=== PATIENT | female | born 1935 | race African-American/Black ===

== ENCOUNTER 2022-08-02 14:06 | Observation (INO) | payer OTHER ==
[2022-08-02] MEDS ORDERED: MECLIZINE HCL 25 MG TABLET (FP) PO ONE (15:27)
[2022-08-02] MEDS ORDERED: SODIUM CHLORIDE 0.9% 500 ML INFUS.BAG IV ONE (15:27)
[2022-08-02] MEDS ORDERED: MECLIZINE HCL 25 MG TABLET (FP) ONE (15:32)
[2022-08-02 17:15] LABS: EOS % 2.3 % (0-4.5); HEMATOCRIT 24.2 % (32.4-45.2); HEMOGLOBIN 7.6 GM/dL (10.7-15.3); LYMPH % 63.2 % (8-40); MCH 28.9 pg (25.7-33.7); MCHC 31.2 g/dl (32.0-36.0); MEAN CELL VOLUME 92.5 fl (80-96); MEAN PLT VOLUME 8.2 fl (7.5-11.1); NEUT % 25.5 % (42.8-82.8); PLATELET COUNT 229 10^3/uL (134-434); RBC 2.62 M/mm3 (3.60-5.2); RDW 19.2 % (11.6-15.6); WHITE BLOOD COUNT 4.2 K/mm3 (4.0-10.0)
[2022-08-02 17:17] LABS: PROTHROMBIN TIME (PATIENT) 11.6 SEC (9.7-13.0)
[2022-08-02 17:19] LABS: ACTIVATED PTT 30.8 SECONDS (25.2-36.5)
[2022-08-02 17:31] LABS: ALBUMIN 3.4 g/dl (3.4-5.0); BLOOD UREA NITROGEN 15.3 mg/dL (7-18)
[2022-08-02 17:34] LABS: CREATININE 1.2 mg/dL (0.55-1.3)
[2022-08-02 17:35] LABS: BILIRUBIN,TOTAL 0.2 mg/dL (0.2-1); TOT PROT 6.6 g/dl (6.4-8.2)
[2022-08-02 17:57] LABS: ANISOCYTOSIS 2+; MACROCYTOSIS 0; OVALOCYTE 1+; TARGET CELLS 1+; TEAR DROP CELLS 1+
[2022-08-02 20:35] LABS: CHOLESTEROL 145 mg/dL (50-200); TRIGLYCERIDES 77 mg/dL (0-150)
[2022-08-02 20:36] LABS: LDL CHOLESTEROL (ONLY SJRH) 72 mg/dL (5-100)
[2022-08-02 20:38] LABS: HDL CHOLESTEROL 67 mg/dL (40-60)
[2022-08-02] MEDS ORDERED: SODIUM CHLORIDE 1,000 ML IV SCH (21:15)
[2022-08-03 06:13] VITALS: BMI 26.3
[2022-08-03 08:45] LABS: BASO % 0.7 % (0-2.0); EOS % 2.8 % (0-4.5); HEMATOCRIT 21.9 % (32.4-45.2); LYMPH % 19.1 % (8-40); MCHC 31.1 g/dl (32.0-36.0); MEAN CELL VOLUME 90.2 fl (80-96); MEAN PLT VOLUME 7.2 fl (7.5-11.1); MONO % 17.3 % (3.8-10.2); NEUT % 60.1 % (42.8-82.8); PLATELET COUNT 175 10^3/uL (134-434); RBC 2.43 M/mm3 (3.60-5.2); RDW 19.6 % (11.6-15.6)
[2022-08-03 08:57] LABS: HEMOGLOBIN 6.8 GM/dL (10.7-15.3)
[2022-08-03 09:06] LABS: CALCIUM 8.6 mg/dL (8.5-10.1)
[2022-08-03 09:07] LABS: ALBUMIN 2.9 g/dl (3.4-5.0); MAGNESIUM 1.7 mg/dL (1.8-2.4)
[2022-08-03 09:09] LABS: CREATININE 1.1 mg/dL (0.55-1.3)
[2022-08-03 09:11] LABS: BILIRUBIN,TOTAL 0.6 mg/dL (0.2-1); TOT PROT 5.7 g/dl (6.4-8.2)
[2022-08-03] MEDS: ENOXAPARIN NA (PORCINE) 40 MG/0.4 ML DISP.SYRIN SQ SCH ×2 (09:33→09:39)
[2022-08-03] MEDS: ASPIRIN 81 MG CHEWABLE TABLETS PO SCH ×2 (09:33→09:38)
[2022-08-03] MEDS ORDERED: PATIENT'S OWN MEDICATION (NON-FORMULARY) (Lenalidomide [Revlimid] 5 MG Capsule) PO SCH (10:00)
[2022-08-03 18:59] VITALS: RESP 18
[2022-08-04] MEDS ORDERED: MAGNESIUM 2GM/50ML STERILE WATER IVPB IVPB ONE (08:44)
[2022-08-04] MEDS: ENOXAPARIN NA (PORCINE) 40 MG/0.4 ML DISP.SYRIN SQ SCH (10:06)
[2022-08-04] MEDS: ASPIRIN 81 MG CHEWABLE TABLETS PO SCH (10:06)
[2022-08-04 10:10] VITALS: BP 143/92; PULSE 78; TEMP 97.6
[2022-08-04 12:07] LABS: BASO % 0.6 % (0-2.0); EOS % 5.4 % (0-4.5); HEMATOCRIT 31.7 % (32.4-45.2); HEMOGLOBIN 10.2 GM/dL (10.7-15.3); LYMPH % 23.5 % (8-40); MCH 28.5 pg (25.7-33.7); MCHC 32.2 g/dl (32.0-36.0); MEAN CELL VOLUME 88.6 fl (80-96); MEAN PLT VOLUME 6.8 fl (7.5-11.1); MONO % 13.8 % (3.8-10.2); NEUT % 56.7 % (42.8-82.8); PLATELET COUNT 171 10^3/uL (134-434); RBC 3.58 M/mm3 (3.60-5.2); RDW 17.5 % (11.6-15.6); WHITE BLOOD COUNT 3.7 K/mm3 (4.0-10.0)
== END 2022-08-04 13:25 | disposition home or self-care (01) ==
LOC: JER 14:06 → JERBED 18:10 → INTOOBSV 21:52 → OBSVTOIN 21:52 → J4W 08-03 05:31
PROVIDERS: ADMIT Internal Medicine; ATTEND Internal Medicine
PROC: 3E023GC Introduction of Other Therapeutic Substance into Muscle, Percutaneous Approach (ICD-10-PCS; principal; 2022-08-02)
PROC: 3E033GC Introduction of Other Therapeutic Substance into Peripheral Vein, Percutaneous Approach (ICD-10-PCS; 2022-08-02)
PROC: 3E0337Z Introduction of Electrolytic and Water Balance Substance into Peripheral Vein, Percutaneous Approach (ICD-10-PCS; 2022-08-02)
PROC: 30233N1 Transfusion of Nonautologous Red Blood Cells into Peripheral Vein, Percutaneous Approach (ICD-10-PCS; 2022-08-02)
DX: D64.9 Anemia, unspecified (principal); R42 Dizziness and giddiness; Z29.8 Encounter for other specified prophylactic measures; I95.1 Orthostatic hypotension
CPT/HCPCS: 0241U-QW; 36415; 36430; 70450-TC; 71045-TC-FY; 80053; 80061; 83735; 84100; 84443; 84484; 85025; 85610; 85730; 86850; 86900; 86901; 86922; 93005; 93010; 93880-TC; 96361; 96372; 96374; 99285-25; G0378; P9058

== ENCOUNTER 2023-02-28 07:22 | Day surgery (SDC) | payer OTHER ==
[2023-02-28 09:38] VITALS: RESP 20
[2023-02-28 18:06] VITALS: BP 133/72; PULSE 64; TEMP 98
== END 2023-02-28 18:35 | disposition home or self-care (01) ==
LOC: JONCBLOOD 07:22 → J7W 07:41 → JONCBLOOD 18:35
PROVIDERS: ATTEND Internal Medicine Hematology & Oncology
PROC: 30233N1 Transfusion of Nonautologous Red Blood Cells into Peripheral Vein, Percutaneous Approach (ICD-10-PCS; principal; 2023-02-28)
DX: D47.2 Monoclonal gammopathy (principal); D46.9 Myelodysplastic syndrome, unspecified; D46.20 Refractory anemia with excess of blasts, unspecified
CPT/HCPCS: 36430; 86850; 86900; 86901; 86922; P9058